=== PATIENT | male | born 1935 | race Caucasian/White ===

== ENCOUNTER 2020-07-01 12:26 | Inpatient (IN) | payer MEDICARE, BC ==
[2020-07-01] MEDS ORDERED: Sodium Chloride 0.9% 10 ML Syringe FLUSH PRN (12:49)
[2020-07-01] MEDS ORDERED: Sodium Chloride 0.9% 1,000 ML IV SCH (13:00)
[2020-07-01] MEDS ORDERED: Ketorolac 60 MG/2 ML SDV IM ONE (14:07)
--- NOTE | 2020-07-01 14:08 | EDM.PDOC ---
ED HPI GENERAL MEDICAL PROBLEM - General Chief Complaint: General Stated Complaint: Weakness Time Seen by Provider: 07/01/20 12:40 Source of Information: Reports: Patient History Limitations: Reports: No Limitations - History of Present Illness INITIAL COMMENTS - FREE TEXT/NARRATIVE: Patient presented to the ED because of progressive weakness, diarrhea, and diaphoresis which started yesterday. There is no fever,chills, nausea, vomiting. Denies any coughing or dyspnea but has occasional wheezing. - Related Data Allergies Allergy/AdvReac Type Severity Reaction Status Date / Time No Known Allergies Allergy Verified 07/01/20 12:55 Home Meds: Home Meds Cholestyramine (With Sugar) [Questran Powder] 4 gm PO SUMOWEFR 07/01/20 [History] Esomeprazole [NexIUM] 40 mg PO DAILY 07/01/20 [History] Furosemide [Lasix] 10 mg PO DAILY 07/01/20 [History] Isosorbide Mononitrate [Imdur] 60 mg PO DAILY 07/01/20 [History] Latanoprost 1 drop EYEBOTH BEDTIME 07/01/20 [History] Metoprolol Succinate [Toprol XL 100mg] 150 mg PO DAILY 07/01/20 [History] Nitroglycerin 0.4 mg SL Q5M PRN 07/01/20 [History] Warfarin [Coumadin] 2.5 mg PO FR 07/01/20 [History] Warfarin [Coumadin] 5 mg PO SUMOTUWETHSA 07/01/20 [History] lisinopriL [Prinivil] 20 mg PO DAILY 07/01/20 [History] Past Medical History Cardiovascular History: Reports: Afib Genitourinary History: Reports: Chronic Renal Insuffiency ED ROS GENERAL - Review of Systems Review Of Systems: See Below Constitutional: Reports: Weakness. Denies: Fever, Chills, Malaise HEENT: Reports: No Symptoms Respiratory: Reports: Wheezing Cardiovascular: Reports: No Symptoms Endocrine: Reports: No Symptoms GI/Abdominal: Reports: Diarrhea : Reports: No Symptoms, Discharge Musculoskeletal: Reports: No Symptoms Skin: Reports: No Symptoms ED EXAM, GENERAL - Physical Exam Exam: See Below Exam Limited By: No Limitations General Appearance: Alert, No Apparent Distress Eye Exam: Bilateral Eye: PERRL Ears: Normal External Exam, Normal Canal Nose: Normal Inspection, Normal Mucosa Throat/Mouth: Normal Inspection, Normal Lips, Normal Teeth Head: Atraumatic, Normocephalic Neck: Normal Inspection, Supple, Non-Tender, Full Range of Motion Respiratory/Chest: No Respiratory Distress, Normal Breath Sounds, Chest Non- Tender, Wheezing Cardiovascular: Normal Peripheral Pulses, Regular Rate, Rhythm, No Edema GI/Abdominal: Normal Bowel Sounds, Soft, Non-Tender Back Exam: Normal Inspection, Full Range of Motion Extremities: Normal Inspection, Normal Range of Motion Neurological: Alert, Oriented, Other (Right hemiparesis) Course - Vital Signs Text/Narrative:: Labs,EKG,CXR,Head CT result was discussed with patient and his NS 1 L bolus in 2 hours Last Recorded V/S: Last Vital Signs Temp 36.4 C 07/02/20 04:00 Pulse 64 07/02/20 04:00 Resp 16 07/02/20 04:00 BP 150/82 H 07/02/20 04:00 Pulse Ox 96 07/02/20 04:00 - Orders/Labs/Meds Orders: Active Orders 24 hr Category Date Time Status CORONAVIRUS COVID-19 PCR PHL Stat Lab 07/01/20 12:52 Ordered Sodium Chloride 0.9% [Normal Saline] 1,000 ml Med 07/01/20 13:00 Active IV ASDIRECTED Sodium Chloride 0.9% [Saline Flush] Med 07/01/20 12:49 Active 10 ml FLUSH ASDIRECTED PRN Saline Lock Insert [OM.PC] Routine Oth 07/01/20 12:49 Ordered EKG 12 Lead [EK] Routine Ther 07/01/20 12:49 Ordered Medication Orders Cholestyramine Resin (Cholestyramine Packet) 4 gm PO SUMOWEFR CHONG Furosemide (Lasix) 10 mg PO DAILY CHONG Sodium Chloride (Normal Saline) 1,000 mls @ 500 mls/hr IV ASDIRECTED CHONG Last Admin: 07/01/20 13:30 Dose: 500 mls/hr Documented by: XIOMARA Sodium Chloride (Normal Saline) 1,000 mls @ 100 mls/hr IV ASDIRECTED CHONG Last Admin: 07/02/20 04:30 Dose: 100 mls/hr Documented by: Infusion: 07/02/20 04:30 Dose: 100 mls/hr Documented by: Admin: 11/05/20 18:30 Dose: 100 mls/hr Documented by: CHRISTA Isosorbide Mononitrate (Imdur) 60 mg PO DAILY [facility] Latanoprost (Xalatan 0.005% Ophth Soln) 0 ml EYEBOTH BEDTIME [facility] Last Admin: 07/01/20 20:06 Dose: 1 drop Documented by: MARIXA Lisinopril (Prinivil) 20 mg PO DAILY [facility] Metoprolol Succinate (Toprol Xl) 150 mg PO DAILY [facility] Nitroglycerin (Nitrostat) 0.4 mg SL Q5M PRN PRN Reason: Chest Pain Ondansetron HCl (Zofran) 4 mg IV Q4H PRN PRN Reason: Nausea/Vomiting Pantoprazole Sodium (Protonix) 40 mg PO DAILY@0600 [facility] Last Admin: 07/02/20 05:01 Dose: 40 mg Documented by: GILBERTO Sodium Chloride (Saline Flush) 10 ml FLUSH ASDIRECTED PRN PRN Reason: Keep Vein Open Last Admin: 07/01/20 13:30 Dose: 10 ml Documented by: XIOMARA Warfarin Sodium (Coumadin) 2.5 mg PO Fr@1600 [facility] Warfarin Sodium (Coumadin) 5 mg PO SUMOTUWETHSA [facility] Last Admin: 07/01/20 17:20 Dose: 5 mg Documented by: CHRISTA Warfarin Sodium (Coumadin Sliding Scale) 1 each PO ASDIRECTED [facility] Labs: Laboratory Tests 07/01/20 07/01/20 07/01/20 Range/Units 12:43 12:49 13:00 WBC (4.5-12.0) X10-3/uL RBC (4.30-5.75) x10(6)uL Hgb (13.5-17.8) g/dL Hct (30.0-51.3) % MCV (80-96) fL MCH (27.7-33.6) pg MCHC (32.2-35.4) g/dL RDW (11.5-15.5) % Plt Count (125-369) X10(3)uL MPV (7.4-10.4) fL Neut % (Auto) (46-82) % Lymph % (Auto) (13-37) % Gilchrist % (Auto) (4-12) % Eos % (Auto) (1.0-5.0) % Baso % (Auto) (0-2) % Neut # (Auto) (1.6-8.3) # Lymph # (Auto) (0.6-5.0) # Gilchrist # (Auto) (0.0-1.3) # Eos # (Auto) (0.0-0.8) # Baso # (Auto) (0.0-0.2) # PT (9.0-11.1) sec INR (1.00-1.24) Sodium 136 (135-145) mmol/L Potassium 3.9 (3.5-5.3) mmol/L Chloride 101 (100-110) mmol/L Carbon Dioxide 24 (21-32) mmol/L BUN 20 H (7-18) mg/dL Creatinine 1.8 H (0.70-1.30) mg/dL Est Cr Clr Drug Dosing TNP Estimated GFR (MDRD) 36 L (>60) BUN/Creatinine Ratio 11.1 (9-20) Glucose 151 H (80-116) mg/dL POC Glucose 128 H (74-100) mg/dL Calcium 8.8 (8.6-10.2) mg/dL Total Bilirubin 0.7 (0.1-1.3) mg/dL AST 24 (5-25) IU/L ALT 22 (12-36) U/L Alkaline Phosphatase 84 (56-112) IU/L Lactate Dehydrogenase 219 (85-227) U/L Troponin I (4.0-60.3) pg/mL C-Reactive Protein (0.5-0.9) mg/dL NT-Pro-B Natriuret Pep (<=450) pg/mL Total Protein 7.8 (6.0-8.0) g/dL Albumin 3.4 (3.2-4.6) g/dL Globulin 4.4 g/dL Albumin/Globulin Ratio 0.8 SARS-CoV-2 RNA (TRUDY) (NEGATIVE) 07/01/20 07/01/20 07/01/20 Range/Units 13:00 13:06 13:06 WBC 6.3 (4.5-12.0) X10-3/uL RBC 5.21 (4.30-5.75) x10(6)uL Hgb 15.7 (13.5-17.8) g/dL Hct 47.2 (30.0-51.3) % MCV 90.6 (80-96) fL MCH 30.1 (27.7-33.6) pg MCHC 33.2 (32.2-35.4) g/dL RDW 13.2 (11.5-15.5) % Plt Count 194 (125-369) X10(3)uL MPV 9.9 (7.4-10.4) fL Neut % (Auto) 69.0 (46-82) % Lymph % (Auto) 16.2 (13-37) % Gilchrist % (Auto) 12.6 H (4-12) % Eos % (Auto) 2 (1.0-5.0) % Baso % (Auto) 1 (0-2) % Neut # (Auto) 4.4 (1.6-8.3) # Lymph # (Auto) 1.0 (0.6-5.0) # Gilchrist # (Auto) 0.8 (0.0-1.3) # Eos # (Auto) 0.1 (0.0-0.8) # Baso # (Auto) 0.0 (0.0-0.2) # PT 23.6 H (9.0-11.1) sec INR 2.31 H (1.00-1.24) Sodium (135-145) mmol/L Potassium (3.5-5.3) mmol/L Chloride (100-110) mmol/L Carbon Dioxide (21-32) mmol/L BUN (7-18) mg/dL Creatinine (0.70-1.30) mg/dL Est Cr Clr Drug Dosing Estimated GFR (MDRD) (>60) BUN/Creatinine Ratio (9-20) Glucose (80-116) mg/dL POC Glucose (74-100) mg/dL Calcium (8.6-10.2) mg/dL Total Bilirubin (0.1-1.3) mg/dL AST (5-25) IU/L ALT (12-36) U/L Alkaline Phosphatase (56-112) IU/L Lactate Dehydrogenase (85-227) U/L Troponin I (4.0-60.3) pg/mL C-Reactive Protein 0.5 (0.5-0.9) mg/dL NT-Pro-B Natriuret Pep (<=450) pg/mL Total Protein (6.0-8.0) g/dL Albumin (3.2-4.6) g/dL Globulin g/dL Albumin/Globulin Ratio SARS-CoV-2 RNA (TRUDY) (NEGATIVE) 07/01/20 07/01/20 Range/Units 13:06 13:40 WBC (4.5-12.0) X10-3/uL RBC (4.30-5.75) x10(6)uL Hgb (13.5-17.8) g/dL Hct (30.0-51.3) % MCV (80-96) fL MCH (27.7-33.6) pg MCHC (32.2-35.4) g/dL RDW (11.5-15.5) % Plt Count (125-369) X10(3)uL MPV (7.4-10.4) fL Neut % (Auto) (46-82) % Lymph % (Auto) (13-37) % Gilchrist % (Auto) (4-12) % Eos % (Auto) (1.0-5.0) % Baso % (Auto) (0-2) % Neut # (Auto) (1.6-8.3) # Lymph # (Auto) (0.6-5.0) # Gilchrist # (Auto) (0.0-1.3) # Eos # (Auto) (0.0-0.8) # Baso # (Auto) (0.0-0.2) # PT (9.0-11.1) sec INR (1.00-1.24) Sodium (135-145) mmol/L Potassium (3.5-5.3) mmol/L Chloride (100-110) mmol/L Carbon Dioxide (21-32) mmol/L BUN (7-18) mg/dL Creatinine (0.70-1.30) mg/dL Est Cr Clr Drug Dosing Estimated GFR (MDRD) (>60) BUN/Creatinine Ratio (9-20) Glucose (80-116) mg/dL POC Glucose (74-100) mg/dL Calcium (8.6-10.2) mg/dL Total Bilirubin (0.1-1.3) mg/dL AST (5-25) IU/L ALT (12-36) U/L Alkaline Phosphatase (56-112) IU/L Lactate Dehydrogenase (85-227) U/L Troponin I 9.9 (4.0-60.3) pg/mL C-Reactive Protein (0.5-0.9) mg/dL NT-Pro-B Natriuret Pep 484 H (<=450) pg/mL Total Protein (6.0-8.0) g/dL Albumin (3.2-4.6) g/dL Globulin g/dL Albumin/Globulin Ratio SARS-CoV-2 RNA (TRUDY) Positive H (NEGATIVE) Meds: Medications Generic Name Dose Route Start Last Admin Trade Name Freq PRN Reason Stop Dose Admin Cholestyramine Resin 4 gm 07/02/20 12:00 Cholestyramine Packet PO SUMOWEFR CHONG Furosemide 10 mg 07/02/20 09:00 Lasix PO DAILY CHONG Sodium Chloride 1,000 mls @ 500 mls/hr 07/01/20 13:00 07/01/20 13:30 Normal Saline IV 500 mls/hr ASDIRECTED CHONG Administration Sodium Chloride 1,000 mls @ 100 mls/hr 07/01/20 16:15 07/02/20 04:30 Normal Saline IV 100 mls/hr ASDIRECTED CHONG Administration Isosorbide Mononitrate 60 mg 07/02/20 09:00 Imdur PO DAILY CHONG Latanoprost 0 ml 07/01/20 21:00 07/01/20 20:06 Xalatan 0.005% Ophth Soln EYEBOTH 1 drop BEDTIME CHONG Administration Lisinopril 20 mg 07/02/20 09:00 Prinivil PO DAILY CHONG Metoprolol Succinate 150 mg 07/02/20 09:00 Toprol Xl PO DAILY CHONG Nitroglycerin 0.4 mg 07/01/20 16:17 Nitrostat SL Q5M PRN Chest Pain Ondansetron HCl 4 mg 07/01/20 15:51 Zofran IV Q4H PRN Nausea/Vomiting Pantoprazole Sodium 40 mg 07/02/20 06:00 07/02/20 05:01 Protonix PO 40 mg DAILY@0600 CHONG Administration Sodium Chloride 10 ml 07/01/20 12:49 07/01/20 13:30 Saline Flush FLUSH 10 ml ASDIRECTED PRN Administration Keep Vein Open Warfarin Sodium 2.5 mg 07/02/20 16:00 Coumadin PO Fr@1600 CHONG Warfarin Sodium 5 mg 07/01/20 16:30 07/01/20 17:20 Coumadin PO 5 mg SUMOTUWETHSA CHONG Administration Warfarin Sodium 1 each 07/01/20 16:45 Coumadin Sliding Scale PO ASDIRECTED CHONG Discontinued Medications Generic Name Dose Route Start Last Admin Trade Name Nisa PRN Reason Stop Dose Admin Ketorolac Tromethamine 60 mg 07/01/20 14:07 07/01/20 14:26 Toradol IM 07/01/20 14:08 Not Given ONETIME ONE Departure - Departure Time of Disposition: 15:15 Disposition: Admitted As Inpatient 67 Condition: Good Clinical Impression: COVID-19, Diarrhea, Weakness - Discharge Information - My Orders Last 24 Hours: My Active Orders 07/01/20 12:49 Sodium Chloride 0.9% [Saline Flush] 10 ml FLUSH ASDIRECTED PRN Saline Lock Insert [OM.PC] Routine EKG 12 Lead [EK] Routine 07/01/20 12:52 CORONAVIRUS COVID-19 PCR PHL Stat 07/01/20 13:00 Sodium Chloride 0.9% [Normal Saline] 1,000 ml IV ASDIRECTED - Assessment/Plan Last 24 Hours: My Active Orders 07/01/20 12:49 Sodium Chloride 0.9% [Saline Flush] 10 ml FLUSH ASDIRECTED PRN Saline Lock Insert [OM.PC] Routine EKG 12 Lead [EK] Routine 07/01/20 12:52 CORONAVIRUS COVID-19 PCR PHL Stat 07/01/20 13:00 Sodium Chloride 0.9% [Normal Saline] 1,000 ml IV ASDIRECTED
--- NOTE | 2020-07-01 14:29 | CT ---
INDICATION: Weakness, previous stroke 7 years prior, right arm deficit from that. CT HEAD WITHOUT CONTRAST: Spiral 3.75 mm axial sections were obtained through the brain without contrast with axial, sagittal and coronal reconstructions 07/01/20 and compared with 04/09/19. Total exam DLP was 1528.47 mGy-cm. The paranasal sinuses and mastoid air cells appear to be well aerated. The orbits appear to be intact. The cranium appears to be intact. Calcifications are noted in the internal carotid arteries and vertebral arteries. Hard beam artifact from the patient's dental work limits detail in the posterior fossa. 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 Additionally, there is relative prominence of the sylvian fissure on the left compatible with atrophy of the left temporal lobe most likely on the basis of previous thrombotic CVA in that area also. No definite new or acute abnormal areas of density were identified to suggest an acute intracranial abnormality at this time. No shift of midline structures was identified. Ventricles are prominent compatible with central atrophy overall similar to the previous study. No bleeding site or hematoma was seen. IMPRESSION: 1. No definite acute intracranial abnormality. 2. Study is somewhat limited in the posterior fossa due to hard beam artifact. 3. Areas of encephalomalacia x3 on the left temporal, occipital, and especially parietal compatible with previous thrombotic CVAs. 4. Mild degree of microvascular disease is suggested. 5. Atherosclerotic changes - cerebrovascular disease noted with calcifications in the internal carotid and vertebral arteries. MTDD
--- NOTE | 2020-07-01 14:35 | CR ---
INDICATION: CHEST ONE VIEW: An AP upright portable view of the chest was obtained 07/01/20 - no comparison, in a patient with cough and dyspnea. The heart is enlarged in appearance. The aorta is tortuous with calcification in the arch. Bipolar pacemaker leads are noted with the tip of the ventricular lead in the area of the apex of the right ventricle. Overlying EKG leads are noted. Poor inspiration is noted emphasizing markings, without a definite consolidating pneumonia or effusion identified. IMPRESSION: 1. No definite acute process. 2. 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 When clinically possibly, full inspiration PA and lateral views of the chest may be helpful for further evaluation. Report was called to Dr. Puri at 1334 hours. [facility]
[2020-07-01] MEDS ORDERED: Ondansetron 4 MG/2 ML SDV IV PRN (15:51)
[2020-07-01] MEDS ORDERED: Nitroglycerin 0.4 MG Tab.SL SL PRN (16:17)
[2020-07-01] MEDS ORDERED: Warfarin Sliding Scale PO SCH (16:45)
[2020-07-01] MEDS: Warfarin 5 MG Tab PO SCH (17:20)
--- NOTE | 2020-07-01 18:11 | PCM.HP.2 ---
H&P History of Present Illness - General Date of Service: 07/01/20 Admit Problem/Dx: Admission Diagnosis/Problem Admission Diagnosis/Problem Weakness Source of Information: Patient History Limitations: Reports: No Limitations - History of Present Illness Initial Comments - Free Text/Narative: This is an 85-year-old male patient this had 1 day history of sweating, diarrhea and weakness. He was brought to the ER and found to be COVID 19 positive. He was admitted because of weakness. He says he always a little bit of wheezing so that's ongoing. He denies any shortness of breath, fevers, chills, bodyaches, loss of taste, loss of smell, sore throat. He was given a liter of fluid in he felt much better. He denies dysuria, pyuria, hematuria, nausea, vomiting, abdominal pain, chest pain. - Related Data Allergies/Adverse Reactions: Allergies Allergy/AdvReac Type Severity Reaction Status Date / Time No Known Allergies Allergy Verified 07/01/20 12:55 Home Medications: Home Meds Cholestyramine (With Sugar) [Questran Powder] 4 gm PO SUMOWEFR 07/01/20 [History] Esomeprazole [NexIUM] 40 mg PO DAILY 07/01/20 [History] Furosemide [Lasix] 10 mg PO DAILY 07/01/20 [History] Isosorbide Mononitrate [Imdur] 60 mg PO DAILY 07/01/20 [History] Latanoprost 1 drop EYEBOTH BEDTIME 07/01/20 [History] Metoprolol Succinate [Toprol XL 100mg] 150 mg PO DAILY 07/01/20 [History] Nitroglycerin 0.4 mg SL Q5M PRN 07/01/20 [History] Warfarin [Coumadin] 2.5 mg PO FR 07/01/20 [History] Warfarin [Coumadin] 5 mg PO SUMOTUWETHSA 07/01/20 [History] lisinopriL [Prinivil] 20 mg PO DAILY 07/01/20 [History] Past Medical History Cardiovascular History: Reports: Afib, Hypertension, [place], Other (See Below) Other Cardiovascular History: Ventricular Tachycardia, peripheral vascular disease, paroxysmal atriel fibrilation, PAD, mil daortic valve stenosis, b ilateral carotid endarterectomy, 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 Respiratory History: Reports: Other (See Below) Other Respiratory History: Former Smoker Gastrointestinal History: Reports: Diverticulosis, GERD, Irritable Bowel Syndrome, Other (See Below) Other Gastrointestinal History: decreased rectal sphincter tone, seven sessile polyps, esophageal stricture. Genitourinary History: Reports: BPH Musculoskeletal History: Reports: Other (See Below) Other Musculoskeletal History: right hemiparesis. 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 - Past Surgical History GI Surgical History: Reports: Colonoscopy Social & Family History - Family History Family Medical History: Noncontributory - Tobacco Use Tobacco Use Status *Q: Former Tobacco User Used Tobacco, but Quit: Yes Month/Year Tobacco Last Used: 80 Second Hand Smoke Exposure: No - Caffeine Use Caffeine Use: Reports: None - Recreational Drug Use Recreational Drug Use: No H&P Review of Systems - Review of Systems: Review Of Systems: See Below General: Reports: Fatigue, Diaphoresis. Denies: Fever, Chills HEENT: Reports: No Symptoms Pulmonary: Reports: Wheezing. Denies: Shortness of Breath, Cough, Sputum, Hemoptysis Cardiovascular: Reports: No Symptoms Gastrointestinal: Reports: Diarrhea Genitourinary: Reports: No Symptoms Musculoskeletal: Reports: No Symptoms Skin: Reports: No Symptoms Psychiatric: Reports: No Symptoms Neurological: Reports: No Symptoms Hematologic/Lymphatic: Reports: No Symptoms Immunologic: Reports: No Symptoms Exam - Exam Exam: See Below - Vital Signs Vital Signs: Last Vital Signs Temp 97.6 F 07/01/20 16:30 Pulse 86 07/01/20 16:30 Resp 18 07/01/20 16:30 BP 160/69 H 07/01/20 16:30 Pulse Ox 95 07/01/20 16:30 Weight: 227 lb 1.6 oz - Exam General: Alert, Oriented, Cooperative HEENT: Hearing Intact, Mucosa Moist & [place], Posterior Pharynx Clear, TMs Clear Neck: Supple, Trachea Midline Lungs: Clear to Auscultation, Normal Respiratory Effort Cardiovascular: Regular Rate, Irregular Rhythm, Systolic Murmur GI/Abdominal Exam: Normal Bowel Sounds, Non-Tender, No Distention Extremities: Normal Inspection, Non-Tender, No Pedal Edema Neurological: Normal Speech Neuro Extensive - Mental Status: Alert, Oriented x3, Normal Mood/Affect, Normal Cognition, Memory Intact Psychiatric: Alert, Normal Affect, Normal Mood - Patient Data Lab Results Last 24 hrs: Laboratory Results - last 24 hr 07/01/20 07/01/20 07/01/20 Range/Units 12:49 13:06 13:06 WBC 6.3 (4.5-12.0) X10-3/uL RBC 5.21 (4.30-5.75) x10(6)uL Hgb 15.7 (13.5-17.8) g/dL Hct 47.2 (30.0-51.3) % MCV 90.6 (80-96) fL MCH 30.1 (27.7-33.6) pg MCHC 33.2 (32.2-35.4) g/dL RDW 13.2 (11.5-15.5) % Plt Count 194 (125-369) X10(3)uL MPV 9.9 (7.4-10.4) fL Neut % (Auto) 69.0 (46-82) % Lymph % (Auto) 16.2 (13-37) % [place] % (Auto) 12.6 H (4-12) % Eos % (Auto) 2 (1.0-5.0) % Baso % (Auto) 1 (0-2) % Neut # (Auto) 4.4 (1.6-8.3) # Lymph # (Auto) 1.0 (0.6-5.0) # [place] # (Auto) 0.8 (0.0-1.3) # Eos # (Auto) 0.1 (0.0-0.8) # Baso # (Auto) 0.0 (0.0-0.2) # PT 23.6 H (9.0-11.1) sec INR 2.31 H (1.00-1.24) Sodium 136 (135-145) mmol/L Potassium 3.9 (3.5-5.3) mmol/L Chloride 101 (100-110) mmol/L Carbon Dioxide 24 (21-32) mmol/L BUN 20 H (7-18) mg/dL Creatinine 1.8 H (0.70-1.30) mg/dL Est Cr Clr Drug Dosing TNP Estimated GFR (MDRD) 36 L (>60) BUN/Creatinine Ratio 11.1 (9-20) Glucose 151 H (80-116) mg/dL Calcium 8.8 (8.6-10.2) mg/dL Total Bilirubin 0.7 (0.1-1.3) mg/dL AST 24 (5-25) IU/L ALT 22 (12-36) U/L Alkaline Phosphatase 84 (56-112) IU/L Troponin I (4.0-60.3) pg/mL NT-Pro-B Natriuret Pep (<=450) pg/mL Total Protein 7.8 (6.0-8.0) g/dL Albumin 3.4 (3.2-4.6) g/dL Globulin 4.4 g/dL Albumin/Globulin Ratio 0.8 SARS-CoV-2 RNA (TRUDY) (NEGATIVE) 07/01/20 07/01/20 Range/Units 13:06 13:40 WBC (4.5-12.0) X10-3/uL RBC (4.30-5.75) x10(6)uL Hgb (13.5-17.8) g/dL Hct (30.0-51.3) % MCV (80-96) fL MCH (27.7-33.6) pg MCHC (32.2-35.4) g/dL RDW (11.5-15.5) % Plt Count (125-369) X10(3)uL MPV (7.4-10.4) fL Neut % (Auto) (46-82) % Lymph % (Auto) (13-37) % [place] % (Auto) (4-12) % Eos % (Auto) (1.0-5.0) % Baso % (Auto) (0-2) % Neut # (Auto) (1.6-8.3) # Lymph # (Auto) (0.6-5.0) # [place] # (Auto) (0.0-1.3) # Eos # (Auto) (0.0-0.8) # Baso # (Auto) (0.0-0.2) # PT (9.0-11.1) sec INR (1.00-1.24) Sodium (135-145) mmol/L Potassium (3.5-5.3) mmol/L Chloride (100-110) mmol/L Carbon Dioxide (21-32) mmol/L BUN (7-18) mg/dL Creatinine (0.70-1.30) mg/dL Est Cr Clr Drug Dosing Estimated GFR (MDRD) (>60) BUN/Creatinine Ratio (9-20) Glucose (80-116) mg/dL Calcium (8.6-10.2) mg/dL Total Bilirubin (0.1-1.3) mg/dL AST (5-25) IU/L ALT (12-36) U/L Alkaline Phosphatase (56-112) IU/L Troponin I 9.9 (4.0-60.3) pg/mL NT-Pro-B Natriuret Pep 484 H (<=450) pg/mL Total Protein (6.0-8.0) g/dL Albumin (3.2-4.6) g/dL Globulin g/dL Albumin/Globulin Ratio SARS-CoV-2 RNA (TRUDY) Positive H (NEGATIVE) Result Diagrams: 07/01/20 13:06 07/01/20 12:49 Sepsis Event Note - Evaluation Sepsis Screening Result: No Definite Risk - Focused Exam Vital Signs: Vital Signs Temp Pulse Resp BP Pulse Ox 07/01/20 16:30 97.6 F 86 18 160/69 H 95 07/01/20 12:35 97.2 F 62 16 119/60 93 L - Problem List (1) COVID-19 SNOMED Code(s): 003386278 ICD Code: U07.1 - COVID-19 Status: Acute Current Visit: Yes (2) Chronic renal disease SNOMED Code(s): 237823671 ICD Code: N18.9 - CHRONIC KIDNEY DISEASE, UNSPECIFIED Status: Acute Current Visit: Yes (3) Atrial fibrillation SNOMED Code(s): 42193258 ICD Code: I48.91 - UNSPECIFIED ATRIAL FIBRILLATION Status: Acute Current Visit: Yes (4) Palliative care status SNOMED Code(s): 006390660 ICD Code: Z51.5 - ENCOUNTER FOR PALLIATIVE CARE Status: Acute Current V isit: Yes (5) Dehydration SNOMED Code(s): 18587509 ICD Code: E86.0 - DEHYDRATION Status: Acute Current Visit: Yes (6) Weakness SNOMED Code(s): 60564032 ICD Code: R53.1 - WEAKNESS Status: Acute Current Visit: Yes Problem List Initiated/Reviewed/Updated: Yes Orders Last 24hrs: Active Orders 24 hr Category Date Time Status Patient Status [ADT] Routine ADT 07/01/20 15:51 Active EKG Documentation Completion [RC] ASDIRECTED Care 07/01/20 12:51 Active Intake and Output [RC] 06,14,22 Care 07/01/20 16:01 Active Nurse Communication: Isolation [RC] 08,16,20 Care 07/01/20 18:01 Active Oxygen Therapy [RC] .PRN Care 07/01/20 15:51 Active Pulse Oximetry [RC] PRN Care 07/01/20 16:02 Active Up With Assistance [RC] ASDIRECTED Care 07/01/20 15:51 Active VTE/DVT Education [RC] Per Unit Routine Care 07/01/20 15:51 Active Vital Signs [RC] 00,04,08,12,16,20 Care 07/01/20 15:51 Active Heart Healthy Diet [DIET] Diet 07/01/20 Dinner Ordered BASIC METABOLIC PANEL,BMP [CHEM] AM Lab 07/02/20 05:11 Ordered CBC WITH AUTO DIFF [HEME] AM Lab 07/02/20 05:11 Ordered CORONAVIRUS COVID-19 PCR PHL Stat Lab 07/01/20 12:52 Ordered INR,PT,PROTHROMBIN TIME [COAG] DAILY Lab 07/03/20 06:00 Ordered INR,PT,PROTHROMBIN TIME [COAG] DAILY Lab 07/04/20 06:00 Ordered INR,PT,PROTHROMBIN TIME [COAG] DAILY Lab 07/05/20 06:00 Ordered INR,PT,PROTHROMBIN TIME [COAG] DAILY Lab 07/06/20 06:00 Ordered INR,PT,PROTHROMBIN TIME [COAG] DAILY Lab 07/07/20 06:00 Ordered INR,PT,PROTHROMBIN TIME [COAG] DAILY Lab 07/08/20 06:00 Ordered INR,PT,PROTHROMBIN TIME [COAG] DAILY Lab 07/09/20 06:00 Ordered INR,PT,PROTHROMBIN TIME [COAG] Routine Lab 07/01/20 16:19 Ordered Cholestyramine/Sucrose [Cholestyramine Packet] Med 07/02/20 12:00 Active 4 gm PO SUMOWEFR Isosorbide Mononitrate [Imdur] Med 07/02/20 09:00 Active 60 mg PO DAILY Latanoprost [Xalatan 0.005% Ophth Soln] Med 07/01/20 21:00 Active 0 ml EYEBOTH BEDTIME Metoprolol Succinate [Toprol XL] Med 07/02/20 09:00 Active 150 mg PO DAILY Nitroglycerin [Nitrostat] Med 07/01/20 16:17 Active 0.4 mg SL Q5M PRN Ondansetron [Zofran] Med 07/01/20 15:51 Active 4 mg IV Q4H PRN Pantoprazole [ProTONIX] Med 07/02/20 06:00 Active 40 mg PO DAILY@0600 Sodium Chloride 0.9% [Normal Saline] 1,000 ml Med 07/01/20 13:00 Active IV ASDIRECTED Sodium Chloride 0.9% [Normal Saline] 1,000 ml Med 07/01/20 16:15 Active IV ASDIRECTED Sodium Chloride 0.9% [Saline Flush] Med 07/01/20 12:49 Active 10 ml FLUSH ASDIRECTED PRN Warfarin Sliding Scale [Coumadin Sliding Scale] Med 07/01/20 16:45 Pending 1 each PO ASDIRECTED Warfarin [Coumadin] Med 07/02/20 16:00 Active 2.5 mg PO Fr@1600 Warfarin [Coumadin] Med 07/01/20 16:30 Active 5 mg PO SUMOTUWETHSA lisinopriL [Prinivil] Med 07/02/20 09:00 Active 20 mg PO DAILY Saline Lock Insert [OM.PC] Routine Oth 07/01/20 12:49 Ordered Sequential Compression Device [OM.PC] Per Unit Routine Oth 07/01/20 16:02 Ordered Resuscitation Status Routine Resus Stat 07/01/20 15:51 Ordered EKG 12 Lead [EK] Routine Ther 07/01/20 12:49 Ordered Medication Orders Cholestyramine Resin (Cholestyramine Packet) 4 gm PO SUMOWEFR CHONG Sodium Chloride (Normal Saline) 1,000 mls @ 500 mls/hr IV ASDIRECTED CHONG Last Admin: 07/01/20 13:30 Dose: 500 mls/hr Documented by: XIOMARA Sodium Chloride (Normal Saline) 1,000 mls @ 100 mls/hr IV ASDIRECTED CHONG Isosorbide Mononitrate (Imdur) 60 mg PO DAILY [facility]ONG Latanoprost (Xalatan 0.005% Ophth Soln) 0 ml EYEBOTH BEDTIME [facility] Lisinopril (Prinivil) 20 mg PO DAILY [facility] Metoprolol Succinate (Toprol Xl) 150 mg PO DAILY [facility] Nitroglycerin (Nitrostat) 0.4 mg SL Q5M PRN PRN Reason: Chest Pain Ondansetron HCl (Zofran) 4 mg IV Q4H PRN PRN Reason: Nausea/Vomiting Pantoprazole Sodium (Protonix) 40 mg PO DAILY@0600 [facility] Sodium Chloride (Saline Flush) 10 ml FLUSH ASDIRECTED PRN PRN Reason: Keep Vein Open Last Admin: 07/01/20 13:30 Dose: 10 ml Documented by: XIOMARA Warfarin Sodium (Coumadin) 2.5 mg PO Fr@1600 [facility] Warfarin Sodium (Coumadin) 5 mg PO SUMOTUWETHSA [facility] Last Admin: 07/01/20 17:20 Dose: 5 mg Documented by: CHRISTA Warfarin Sodium (Coumadin Sliding Scale) 1 each PO ASDIRECTED [facility] Assessment/Plan Comment:: 1. Admit to inpatient. 2. Patient's on Coumadin for clot prophylaxis. 3. Patient wants to be a DNR/DNI 4. IV fluids 5. Regular diet 6. COVID 19 precautions 7. Watch oxygen status and if he gets below 94% on room air it's an indication for treating with antivirals and possible steroids. 8. Continue current medications. 9. Daily INR and pharmacy to manage Coumadin. - Mortality Measure Prognosis:: Good
[2020-07-01] MEDS: Sodium Chloride 0.9% 1,000 ML IV SCH (18:30)
[2020-07-01] MEDS: Latanoprost 0.005% Ophth Soln 2.5 ML Bottle EYEBOTH SCH (20:06)
[2020-07-02] MEDS: Sodium Chloride 0.9% 1,000 ML IV SCH (04:30)
[2020-07-02] MEDS ORDERED: Pantoprazole 40 MG Tab.CR PO SCH (06:00)
[2020-07-02] MEDS: Lisinopril 20 MG Tab PO SCH (08:20)
[2020-07-02] MEDS: Furosemide 20 MG Tab PO SCH (08:20)
[2020-07-02] MEDS: Isosorbide Mononitrate 60 MG Tab.ER PO SCH (08:20)
[2020-07-02] MEDS: Metoprolol Succinate 50 MG Tab.ER PO SCH (08:21)
[2020-07-02] MEDS: Cholestyramine/Sucrose Powder 4 GM Packet PO SCH (11:53)
--- NOTE | 2020-07-02 13:02 | PN ---
DATE SEEN: 07/02/2020 HISTORY: Mr. Huertas is an 85-year-old man with a history of [place]; angioplasty; chronic atrial fibrillation, with pacemaker; and a history of strokes. He was admitted to [facility] from the ER yesterday after a relatively sudden onset of weakness, sweats, and diarrhea. He has had some chronic loose stools, and this was an exacerbation. He was also wheezing and felt dizzy when up. On admission, he was found to have wheezing in his lungs. Regular heart rate. No new focal motor lesions. His COVID test was positive, and creatinine elevated at 1.8. INR was therapeutic at 2.31. He was admitted to the [facility] inpatient unit where he was examined today. I was in full protective gear using a PAPR device during the exam. He states he feels better today with less dizziness. He is not having sweats. He has not had any cough or fever and does not feel particularly short of breath. PHYSICAL EXAMINATION: VITAL SIGNS: Blood pressure 159/84, pulse 80 and regular, respirations 20, oxygen saturation 95% on room air, and temperature 97.9. SKIN: No sign of rash or trauma. MOUTH: Dry. LUNGS: Clear with good air movement in the bases. HEART: Regular at 80 beats per minute. There is a pacemaker generator palpable beneath his left clavicle. ABDOMEN: Normal bowel sounds. Soft and nontender. EXTREMITIES: No edema. 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 He says this is a result of his stroke several years ago. LABORATORY DATA: This morning, white count 4900 and hemoglobin 14.6. INR 2.05. Creatinine 1.6. ASSESSMENT: 1. Coronavirus disease-19 respiratory infection with weakness, dizziness, and diarrhea. 2. Atherosclerotic heart disease with history of angioplasties, chronic atrial fibrillation, permanent pacemaker, and chronic anticoagulation. 3. History of cerebrovascular accidents with right-sided residual weakness. 4. History of chronic loose stools. PLAN: We will continue IV fluid for rehydration, his current medications. Increase activity as tolerated, and plans to return to his home when strong enough. /[id number] RO/MODL
[2020-07-02] MEDS ORDERED: Warfarin 2.5 MG Tab PO SCH (16:00)
[2020-07-02] MEDS: Latanoprost 0.005% Ophth Soln 2.5 ML Bottle EYEBOTH SCH (21:06)
[2020-07-03] MEDS: Furosemide 20 MG Tab PO SCH (09:03)
[2020-07-03] MEDS: Isosorbide Mononitrate 60 MG Tab.ER PO SCH (09:03)
[2020-07-03] MEDS: Lisinopril 20 MG Tab PO SCH (09:04)
[2020-07-03] MEDS: Metoprolol Succinate 50 MG Tab.ER PO SCH (09:04)
[2020-07-03] MEDS: Warfarin 5 MG Tab PO SCH (15:54)
[2020-07-03] MEDS: Latanoprost 0.005% Ophth Soln 2.5 ML Bottle EYEBOTH SCH (20:05)
[2020-07-04] MEDS: Isosorbide Mononitrate 60 MG Tab.ER PO SCH (09:01)
[2020-07-04] MEDS: Metoprolol Succinate 50 MG Tab.ER PO SCH (09:01)
[2020-07-04] MEDS: Lisinopril 20 MG Tab PO SCH (09:01)
[2020-07-04] MEDS: Furosemide 20 MG Tab PO SCH (09:01)
--- NOTE | 2020-07-04 11:05 | DISCH ---
DISCHARGE DATE: 07/04/2020 PRIMARY FINAL DIAGNOSIS: Coronavirus disease viral infection. OTHER DIAGNOSES: 1. Atherosclerotic heart disease with history of chronic atrial fibrillation and congestive heart failure. 2. History of stroke with right-sided residual weakness. OPERATIONS: None. COMPLICATIONS: None. SUMMARY: Erick is an 85-year-old man with the above medical problems who was admitted with weakness, chills, sweats, and minimal respiratory symptoms. He was, however, having diarrhea. He was found to be COVID positive and was admitted because of his extreme weakness and unsteadiness. He was placed in respiratory isolation. He was rehydrated with IV fluids, and his cardiac and warfarin meds were continued. The patient steadily improved, and by 07/04/2020 was up walking with his cane. He was unsteady on his feet yet, but states he was close to his baseline. His breathing was easy. He was having no chest pain, dyspnea, and he had a good appetite. He was discharged to home in improved condition. He is to continue to wear a mask and socially isolate through 07/11/2020. His close contacts are to stay socially isolated through 07/15/2020. MEDICATIONS ON DISCHARGE: 1. Nexium 40 mg daily. 2. Warfarin 2.5 mg Sunday, 5 mg 6 days a week as directed by the [facility]. 3. Nitroglycerin p.r.n. 4. Metoprolol succinate 150 mg daily. 5. Lisinopril 20 mg daily. 6. Latanoprost eye drops 1 drop both eyes at bedtime. 7. Isosorbide mononitrate 60 mg daily. 8. Furosemide 10 mg daily. 9. Cholestyramine 4 g 4 days a week. He is to have his routine followup with his doctor at and call should there be problems or questions needing attention prior to that time. /[id number] GRACIELA/KILLIAN
[2020-07-04] MEDS: Cholestyramine/Sucrose Powder 4 GM Packet PO SCH (12:28)
--- NOTE | 2020-07-05 07:05 | PN ---
DATE SEEN: 07/03/2020 HISTORY: Erick is an 85-year-old man who was admitted with a COVID infection 2 days ago. He was having diarrhea, weakness, sweats, and unsteadiness on his feet. He was rehydrated with IV fluids and supportive care done given his laboratory has remained stable, and he is anticoagulated for underlying atrial fibrillation. The patient is examined in his room in the COVID unit today. I had full infection control garb on with a PAPR during my visit. PHYSICAL EXAMINATION: VITAL SIGNS: Blood pressure 158/78, pulse 90 and regular, respirations normal, O2 saturation 95% on room air. Weight 227. SKIN: Clear without rash. LUNGS: Clear to the bases. HEART: Regular without murmur or gallop. ABDOMEN: Normal bowel sounds. Soft and nontender. EXTREMITIES: Showed no edema. ASSESSMENT: COVID-19 infection with weakness, unsteadiness, diarrhea, and dehydration. PLAN: He is improved today. We will increase his activity. Continue his isolation precautions and plan for discharge tomorrow if he continues to improve. /[id number] GRACIELA/KILLIAN
== END 2020-07-04 13:10 | disposition home or self-care (01) | DRG 178 ==
LOC: FB.ED 12:26 → FB.OB 15:51
PROVIDERS: ADMIT Emergency Medicine; ATTEND Family Medicine
PROC: 8E0ZXY6 Isolation (ICD-10-PCS; principal; 2020-07-01)
DX: U07.1 COVID-19 (principal); I69.351 Hemiplegia and hemiparesis following cerebral infarction affecting right dominant side; I13.0 Hypertensive heart and chronic kidney disease with heart failure and stage 1 through stage 4 chronic kidney disease, or unspecified chronic kidney disease; I50.9 Heart failure, unspecified; Z79.01 Long term (current) use of anticoagulants; Z79.899 Other long term (current) drug therapy; I25.2 Old myocardial infarction; I73.9 Peripheral vascular disease, unspecified; Z95.0 Presence of cardiac pacemaker; Z87.891 Personal history of nicotine dependence; K21.9 Gastro-esophageal reflux disease without esophagitis; N40.0 Benign prostatic hyperplasia without lower urinary tract symptoms; K58.9 Irritable bowel syndrome, unspecified; Z66 Do not resuscitate; Z51.5 Encounter for palliative care; E86.0 Dehydration; I48.0 Paroxysmal atrial fibrillation
CPT/HCPCS: 36415; 70450; 71045; 80048; 80053; 82728; 82962; 83615; 83880; 84484; 85025; 85610; 86140; 93005; 99284; 99285-25; A9270-GY; J7030; U0002